=== PATIENT | female | born 1970 | race Caucasian/White ===

== ENCOUNTER 2019-04-12 14:15 | Emergency (ER) | payer MEDICAID ==
[~2019-04-12] VITALS: Ht 157.5 cm; Wt 89.1 kg
[2019-04-12 14:20] VITALS: Ht 157.5 cm; Wt 89.1 kg
[2019-04-12] MEDS ORDERED: HYDROCODON-ACE1 EA10 PO (14:21)
[2019-04-12 17:02] VITALS: BP 123/78
== END 2019-04-12 17:02 | disposition home or self-care (01) ==
LOC: D.ER 14:15
DX: R07.9 Chest pain, unspecified (principal); V43.52XA Car driver injured in collision with other type car in traffic accident, initial encounter; Y93.89 Activity, other specified; Y92.410 Unspecified street and highway as the place of occurrence of the external cause